=== PATIENT | male | born 1955 | race Caucasian/White ===

== ENCOUNTER → 2018-06-11 | Outpatient (CLI) | payer BC ==
--- NOTE | 2018-06-13 19:29 | MR ---
EXAMINATION TYPE: MR shoulder RT wo con DATE OF EXAM: 06/11/2018 COMPARISON: None HISTORY: 62-year-old male Right shoulder pain with Limited ROM X1 year TECHNIQUE: Multiplanar, multisequence imaging of the right shoulder is performed without contrast. FINDINGS: There is prominent abnormal signal within the lung and biceps tendon at the junction of the intracaps ular and extracapsular portions. The extracapsular portion appears intact and remains situated along the bicipital groove with mild tenosynovial fluid. There is abnormal signal involving the superior half of the subscapularis tendon. The inferior half f ibers remain intact. Mild to moderate degenerative joint space narrowing with marginal spurring and capsular hypertrophy a t the acromioclavicular joint. There is prominent impingement onto the underlying cuff. Both supraspinatus and infraspinatus tendons are very attenuated with heterogeneous signal. There is a high-grade bursal sided tear of the far anterior supraspinatus tendon measuring 1 cm long and 1.2 c m AP. Tear closely approaches the articular surface. No retracted tear is seen. No atrophy of the rotator cuff musculature. Small amount of fluid within the subacromial/subdeltoid bursa. Mild diffuse thinning of glenoid humeral joint articular cartilage without significant joint effusion . Degenerative signal and blunting of the superior labrum. No para labral cyst. An os acromiale is present. Some degenerative changes seen at the os acromiale he. No Hill-Sachs deformity or suspicious bone marrow replacement. IMPRESSION: 1. Diffuse rotator cuff tendinosis and with thinning of both supraspinatus and infraspinatus tendons. However, there is a high-grade bursal sided tear of the far anterior supraspinatus tendon measuring 1.0 x 1.2 cm. The tear closely approaches the articular surface. 2. In addition, there is tear of the superior half subscapularis tendon fibers. The inferior half fib ers remain intact. 3. No rotator cuff muscle atrophy. 4. 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 5. Severe tendinosis or more likely, partial tear at the junction of the intracapsular and extracapsu lar portions of the long head biceps tendon.
== END | disposition home or self-care (01) ==
LOC: RADMRIMAIN 17:51
PROVIDERS: ATTEND Orthopaedic Surgery
DX: M75.101 Unspecified rotator cuff tear or rupture of right shoulder, not specified as traumatic (principal); S46.911A Strain of unspecified muscle, fascia and tendon at shoulder and upper arm level, right arm, initial encounter; M19.011 Primary osteoarthritis, right shoulder

== ENCOUNTER 2018-07-06 09:53 | Day surgery (SDC) | payer BC ==
[2018-07-02 16:18] VITALS: BMI 25.0
--- NOTE | 2018-07-05 08:59 | HP ---
HISTORY AND PHYSICAL CHIEF COMPLAINT: Right shoulder pain. 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 He has pain with overhead use and at night. He has tried injections along with medications with only partial temporary relief. He notes the pain severely limits his normal function and activities. PAST MEDICAL HISTORY: Significant for depression and hypertension. PAST SURGICAL HISTORY: Significant for previous left wrist surgery. CURRENT MEDICATIONS: Current medications include Aleve and antihypertensives. ALLERGIES: He denies drug allergies. FAMILY HISTORY: Significant for renal disease, diabetes, and cancer. SOCIAL HISTORY: Significant for 2 pack per day tobacco use. REVIEW OF SYSTEMS: Sixteen-point review of systems otherwise reviewed and is noncontributory. PHYSICAL EXAMINATION: On examination, the patient is approximately 5 feet, 5 inches, 150 pounds of mesomorphic habitus. HEENT exam is nonfocal. Neck is supple. On examination of his right shoulder, he is tender about the anterior subacromial space. He has moderate subacromial crepitus. Active range of motion forward elevation 165 degrees, external rotation with arm at side 75 degrees, internal rotation to T11. Motor strength is 5 minus over 5 for abduction and external rotation. Impingement test, Neer test, and Speed tests are positive. His distal neurovascular exam otherwise appears to be intact in the right upper extremity. MRI report right shoulder from 06/11/2018 showed evidence of a supraspinatus and subscapularis tear along with significant biceps tendinosis. IMPRESSION: 1. Right shoulder impingement with symptomatic rotator cuff tear. 2. Right proximal bicipital tendinosis. RECOMMENDATIONS: I talked to the patient at length regarding his condition and treatment options. At this point he is quite symptomatic and limited because of pain despite conservative measures. After thorough discussion, he opts to proceed with surgery. We will plan to proceed with arthroscopic evaluation with possible subacromial decompression, rotator cuff debridement versus repair, and possible biceps tenotomy. We will likely perform that as an outpatient procedure. Risks and benefits were discussed at length in layman's terms. MMODL / IJN: [id number] /
[~2018-07-06 09:53] MED LIST: HYDROmorphone 0.5 MG/0.5 ML SYRINGE IVP PRN; LACTATED RINGERS 1,000 ML IV SCH; LIDOCAINE 1% 20 ML VIAL (10MG/ML) FOR IV START INTRADERMA PRN; ONDANSETRON 4 MG/2 ML VIAL IVP ONE; ceFAZolin IN SWFI 2 GM/20 ML SYRINGE IVP ONE
[2018-07-06] MEDS ORDERED: DEXAMETHASONE SOD PHOS (MDV) 100 MG/10 ML VIAL IV ONE (11:23)
[2018-07-06] MEDS ORDERED: MIDAZOLAM 2 MG/2 ML VIAL IV ONE (11:50)
[2018-07-06] MEDS ORDERED: LIDOCAINE 1% INJ 10MG/ML (20 ML MDV) ONE (12:28)
[2018-07-06] MEDS ORDERED: GLYCOPYRROLATE 0.2 MG/ML 2 ML VIAL ONE (12:28)
[2018-07-06] MEDS ORDERED: ROPIVACAINE 5 MG/ML 30 ML VIAL ONE (12:28)
[2018-07-06] MEDS ORDERED: PROPOFOL 10 MG/ML 20 ML VIAL IV ONE (12:28)
[2018-07-06] MEDS ORDERED: ROCURONIUM BROMIDE 10 MG/ML 10 ML VIAL IV ONE (12:28)
[2018-07-06] MEDS ORDERED: SUCCINYLCHOLINE CHLORIDE 100 MG/5 ML SYR IV ONE (12:28)
[2018-07-06] MEDS ORDERED: fentaNYL (PF) 50 MCG/ML 2 ML AMP ONE (12:28)
[2018-07-06] MEDS ORDERED: ePHEDrine SULFATE/0.9% NACL/PF 50 MG/5 ML SYRINGE IV ONE (12:28)
[2018-07-06] MEDS ORDERED: NEOSTIGMINE 1 MG/ML 10 ML VIAL ONE (12:28)
[2018-07-06] MEDS ORDERED: EPINEPHrine (PF) 1 ML in SODIUM CHLORIDE 0.9% IRRIGATIO 3,000 ML IRRIGATION ONE ×7 (13:01→13:02)
[2018-07-06] MEDS ORDERED: LACTATED RINGERS 1,000 ML IV ONE (13:50)
--- NOTE | 2018-07-06 13:55 | P.OP ---
Date of Procedure: 07/06/18 Preoperative Diagnosis: Symptomatic right rotator cuff tear Postoperative Diagnosis: 4 cm rotator cuff tear, high-grade partial-thickness tear long head of the bicepsintra-articular Procedure(s) Performed: Right shoulder arthroscopic subacromial decompression/biceps tenotomy/rotator cuff repair Implants: Arthrex 4.75 mm swivel lock anchor 4 Anesthesia: danilo JACKSON Surgeon: Jasen Desai Manager Sound #1: Jarek Ross Estimated Blood Loss (ml): 10 Pathology: none sent Condition: stable Disposition: PACU Indications for Procedure: The patient is a 62-year-old gentleman who presents with progressive right shoulder pain despite conservative measures. A discussion of the risks and benefits of operative intervention versus continued conservative measures was made with patient. He opted to proceed with surgery. Operative risks to include infection, neurovascular injury, development blood clots, possible tendon rerupture, possible need for subsequent procedures was discussed. Informed consent was obtained. Operative Findings: As below Description of Procedure: The patient was brought to the operating room, and after induction of general anesthesia was placed in a beachchair position. A preoperative interscalene block was placed for postoperative analgesia. I examined the right shoulder. There was no gross block to passive motion or gross glenohumeral instability. The right upper extremity was prepped and draped in normal fashion. The bony outlines the acromion, distal clavicle, and coracoid process were outlined with a skin marker. The glenohumeral joint was inflated with 50 mL of saline utilizing a spinal needle from posterior approach. A posterior portal was made through a 5 mm skin incision 1 cm medial and inferior to the posterior lateral border time. A blunt trocar was used to easily into the joint. Diagnostic arthroscopy was performed. An anterior portal was made just lateral to the coracoid process entering the joint above the subscapularis tendon. The subscapularis tendon appeared to be intact. Anterior labrum was intact. The inferior recess was inspected. The posterior labrum was intact. There was a high-grade partial-thickness tear of the long head of the biceps involving interarticular portion. It was elected to proceed with release at this point. This was released from the superior labrum with electrocautery and was allowed to retract to the bicipital groove. On inspection the rotator cuff a 4 cm tear involving the supraspinatus and infraspinatus was noted with some retraction. The arthroscope was then placed into the subacromial space. A lateral portal was made 2 centimeters inferior to the anterior lateral border of the acromion. The rotator cuff was then mobilized with a traction suture. This was then easily brought back to the greater tuberosity. The soft tissue on the undersurface of the acromion was debrided with a motorized shaver and electrocautery clearly defining the anterior medial and lateral borders as well as the distal clavicle. An anterior inferior acromioplasty was performed with a motorized aleksandra starting anterolateral, then extending this posteriorly, then extending this medially. I converted to a flat acromion and this was verified in the posterior and lateral viewing portals. The greater tuberosity was lightly decorticating with a shaver down to a bleeding bony surface. An accessory superior lateral portals made just off the lateral edge of the acromion for anchor placement. 2 anchors were then placed just off the articular surface with the appropriate starting awl. 4.75 mm anchors preloaded with #2 fiber tape were placed. Good purchase was obtained. These fiber tapes were then passed the rotator cuff with a scorpion suture passer. A lateral row was created crisscrossing these tapes. Two 4.75 millimeters swivel lock anchors were placed laterally. Good purchase was obtained. Final arthroscopic view showed adequate compression at the footprint. The arthroscope was then removed. The portals were closed with simple 3-0 nylon sutures. A sterile dressing was applied in addition to an abductor brace. The patient was then awoken from general anesthesia and transferred to recovery room in good condition. Blood loss was estimated at 10 mL. No complications were incurred. Sponge and needle counts were correct in the case. Oscar SARMIENTO assisted and the major components of the case to include arm positioning, anchor placement, and rotator cuff repair.
[2018-07-06 14:22] VITALS: TEMP 97
[2018-07-06 15:13] VITALS: RESP 18
[2018-07-06 15:31] VITALS: BP 137/78; PULSE 67
--- NOTE | 2018-07-07 07:13 | P.ONQ ---
Anesthesiology Proc Note - PNB - Peripheral Nerve Block Performed Right Interscalene Single Time Out Performed: Yes Procedure Start Time: 11:51 Procedure Stop Time: :58 Indication: Acute Post-Operative Pain, Requested by physician Sedation Type: Sedate with meaningful contact maintained Preparation: Sterile Prep Position: Supine Needle Size: 50mm (2") Needle Gauge: 21 Technique: Ultrasound Injectate: 0.5% Ropivacaine (see comment for volume) (ropi .5% 30cc) Blood Aspirated: No Pain Paresthesia on Injection Noted: No Resistance on Injection: Normal Events: Uneventful and Well Tolerated
== END 2018-07-06 15:44 | disposition home or self-care (01) ==
LOC: OR 09:53
PROVIDERS: ATTEND Orthopaedic Surgery
DX: M75.101 Unspecified rotator cuff tear or rupture of right shoulder, not specified as traumatic (principal); S46.111A Strain of muscle, fascia and tendon of long head of biceps, right arm, initial encounter; X58.XXXA Exposure to other specified factors, initial encounter; I10 Essential (primary) hypertension; Z79.899 Other long term (current) drug therapy; Z83.3 Family history of diabetes mellitus; Z72.0 Tobacco use; Z79.1 Long term (current) use of non-steroidal anti-inflammatories (NSAID)
CPT/HCPCS: 64415; 29826; 29827; C1713; C1894; J2250; J2710; J2405; J0171; J2001; J3010; J1100; J2795; J0330; J2704; J0690

== ENCOUNTER → 2024-04-18 | Outpatient (CLI) | payer MEDICARE ==
--- NOTE | 2024-04-18 09:21 | XR ---
EXAMINATION TYPE: XR chest 2V DATE OF EXAM: 04/18/2024 9:15 AM COMPARISON: None. CLINICAL INDICATION: Male, 68 years old with history of R05.9 COUGH, UNSPECIFIED, TECHNIQUE: XR chest 2V view(s) obtained. FINDINGS: The heart size is normal. The pulmonary vasculature is normal. The lungs are clear. IMPRESSION: 1. No acute pulmonary process. [facility], , 04/18/2024 9:19 AM
== END | disposition home or self-care (01) ==
LOC: RADXRMAIN 09:01
PROVIDERS: ATTEND Internal Medicine
DX: R05.9 Cough, unspecified (principal)
CPT/HCPCS: 71046

== ENCOUNTER → 2024-12-22 | Outpatient (CLI) | payer MEDICARE ==
--- NOTE | 2024-12-22 09:47 | US ---
EXAMINATION TYPE: US Aorta Screening DATE OF EXAM: 12/22/2024 COMPARISON: NONE CLINICAL INDICATION: Male, 69 years old with history of N18.9 CKD I10 HTN; Patient denies any signs o r symptoms TECHNIQUE: Multiple sonographic images of the abdominal aorta are obtained with grayscale and color D oppler imaging. FINDINGS: EXAM MEASUREMENTS: Abdominal Aorta: Proximal: 2.6 x 2.1 cm Mid: 2.0 x 2.0 cm Distal: 2.0 x 1.7 cm Bifurcation: Right Iliac: 0.9 x 0.7 cm Left Iliac: 0.9 x 0.8 cm LOCKSTITCHER NOTES: Unremarkable exam IMPRESSION: > 2.5 to 3.0 cm Abdominal aortic aneurysm. Recommendation: Repeat Ultrasound in 10 year per Society o f Vascular Surgery Recommendations. [email or web address] [facility], , 12/22/2024 9:45 AM
--- NOTE | 2024-12-22 09:51 | US ---
EXAMINATION TYPE: US kidneys/renal and bladder DATE OF EXAM: 12/22/2024 COMPARISON: NONE CLINICAL INDICATION: Male, 69 years old with history of N18.9 CKD I10 HTN; Father had Hx renal diseas e TECHNIQUE: Grayscale imaging of the bilateral kidneys and urinary bladder: FINDINGS: EXAM MEASUREMENTS: Right Kidney: 10.4 x 5.1 x 5.2 cm Left Kidney: 12.2 x 5.0 x 4.8 cm Right Kidney: Upper pole cyst measures 3.7 x 3.0 x 2.5 cm. There may be some internal complexity. Low er pole cyst measures 2.7 cm. No hydronephrosis. Left Kidney: A number of cortical cysts are present, largest measuring up to 5.5 cm. No hydronephrosi s is seen. Bladder: Underdistention limits its evaluation. IMPRESSION: 1. No hydronephrosis. 2. Bilateral renal cortical cysts larger on the left, measuring up to 5.5 cm. 3. An upper pole cyst on the right measuring 3.7 cm may contain some internal complexity. Recommend r enal mass protocol CT or MRI for further characterization. 4. Underdistention of the bladder limits its evaluation. [facility], , 12/22/2024 9:49 AM
== END | disposition home or self-care (01) ==
LOC: RADUSWWP 09:08
PROVIDERS: ATTEND Internal Medicine
DX: I12.9 Hypertensive chronic kidney disease with stage 1 through stage 4 chronic kidney disease, or unspecified chronic kidney disease (principal); N18.9 Chronic kidney disease, unspecified
CPT/HCPCS: 76706; 76770